=== PATIENT | female | born 1930 | race Caucasian/White ===

== ENCOUNTER 2018-04-01 09:36 | Outpatient (CLI) | payer MEDICARE, BC | END 2018-04-01 23:59 | disposition home or self-care (01) | LOC: CL 09:36 | PROVIDERS: ATTEND Nurse Practitioner Acute Care | DX: Z45.2 Encounter for adjustment and management of vascular access device (principal) | CPT/HCPCS: C1751 ==

== ENCOUNTER 2019-08-04 09:41 | Inpatient (IN) | payer MEDICARE, BC ==
[2019-08-04] VITALS (7 sets, daily range): BP systolic 110–133; BP diastolic 56–96
[~2019-08-04] VITALS: Ht 167.6 cm; Wt 49.0 kg
--- NOTE | 2019-08-04 09:50 | NUR ---
ALMA FROM HOME C/O SOB STARTED THIS MORNING. PER PARAMEDICS 80% ON RA. PATIENT A/OX2, BREATHING EVEN AND UNLABORED, NO SOB NOTED, SPO2 SHOWS 96-98% ON ROOM AIR. NEEDS ATTENDED. ATTACHED TO THE SENIOR BENEFITS MANAGER.
[2019-08-04] MEDS ORDERED: ONDA-97 PO (10:04)
[2019-08-04] MEDS ORDERED: MIRT15TA7 PO (10:04)
[2019-08-04] MEDS ORDERED: ACET-868 PO (10:04)
[2019-08-04] MEDS ORDERED: APIX2.5T PO (10:04)
[2019-08-04] MEDS ORDERED: METO25TA6 PO (10:04)
[2019-08-04 10:21] LABS: BASOPHILS # (AUTO) 0.1 /CMM (0.0-0.2); BASOPHILS % (AUTO) 0.5 % (0.0-2.0); EOSINOPHILS % (AUTO) 0.2 % (0.0-6.0); HEMATOCRIT 28 % (33-45); HEMOGLOBIN 8.9 g/dL (11.5-14.8); LYMPHOCYTES # (AUTO) 0.9 /CMM (0.8-4.8); LYMPHOCYTES % (AUTO) 8.3 % (20.0-44.0); MEAN CORPUSCULAR HGB CONC 31 g/dl (31.0-36.0); MEAN CORPUSCULAR VOLUME 76 fL (82-100); MONOCYTES # (AUTO) 0.6 /CMM (0.1-1.30); NEUTROPHILS # (AUTO) 9.8 /CMM (1.8-8.9); PLATELET COUNT (AUTO) 428 /CMM (150-450); RED BLOOD CELL COUNT(AUTO) 3.76 MIL/uL (4.0-5.2); WHITE BLOOD COUNT (AUTO) 11.4 K/uL (4.3-11.0)
--- NOTE | 2019-08-04 10:26 | NUR ---
URINE SAMPLE COLLECTED VIA STRAIGHT CATHETER, SENT SAMPLE TO LAB.
[2019-08-04 10:44] LABS: APPEARANCE,URINE Clear (CLEAR); BILIRUBIN,URINE Negative (NEGATIVE); BLOOD, URINE Small Ery/uL (NEGATIVE); COLOR,URINE Yellow (YELLOW); KETONES,URINE Negative (NEGATIVE); LEUKOCYTE ESTERASE ,URINE Negative (NEGATIVE); NITRITE, URINE Positive (NEGATIVE); PROTEIN,URINE Trace mg/dl (NEGATIVE); UGLUCOSE Negative (NEGATIVE); UROBILINOGEN,URINE 0.2 EU/dL (0.2)
[2019-08-04 10:51] LABS: ALANINE AMINOTRANSFERASE 14 U/L (12-78); ALBUMIN 2.3 g/dL (3.4-5.0); ALKALINE PHOSPHATASE 149 U/L (46-116); ASPARTATE AMINOTRANSFERASE 14 U/L (15-37); B-TYPE NATRIURETIC PEPTIDE 535 PG/ML (0-125); BILIRUBIN,TOTAL 0.4 mg/dL (0.2-1.0); CALCIUM, SERUM 8.8 mg/dL (8.5-10.1); CARBON DIOXIDE 27 mmol/L (21-32); CHLORIDE 98 mmol/L (98-107); CREATININE 0.9 mg/dL (0.6-1.3); GLUCOSE 131 mg/dL (74-106); POTASSIUM 4.9 mmol/L (3.5-5.1); SODIUM SERUM 135 mmol/L (136-145); TOTAL PROTEIN, SERUM 6.9 g/dL (6.4-8.2); UREA NITROGEN, BLOOD 11 mg/dL (7-18)
[2019-08-04 11:04] LABS: CREATINE KINASE, TOTAL 22 U/L (26-192); FERRITIN 220 ng/mL (8-388)
[2019-08-04 11:08] LABS: D-DIMER 0.85 mg/L(FEU (0.17-0.50)
[2019-08-04 11:08] LABS: BACTERIA,URINE 2+ /HPF (None Seen); SQUAMOUS EPITHELIAL CELL,UR Few /HPF (None Seen)
--- NOTE | 2019-08-04 11:10 | NUR ---
ASSUMED CARE OF PT FOR SHADY. PT IS ON THE MONITOR AND CONTINUOUS PULSE OX. PT'S O2 SAT IS 91% ON RA. PT HAS HER NC OFF. NC REPLACED AND PT IS NOW 98% ON 3L O2.
[2019-08-04 11:24] LABS: ABG BASE EXCESS -3.2 mmol/L; ABG OXYGEN SATURATION 95.9 % (92.0-98.5); ABG PCO2 28.4 mmHg (35.0-45.0); ABG PH 7.464 (7.350-7.450); AaDO2 24.7 mmHg; COHb 1.5 % (0.5-1.5); MetHb 0.3 % (0.0-1.5); O2Hb 94.2 % (94.0-97.0); SITE, ABG Right Radial; VENT MODE, BG room air
--- NOTE | 2019-08-04 11:25 | NUR ---
INFLUENZA AND COVID SWABS DONE. ALL SENT TO LAB.
--- NOTE | 2019-08-04 11:41 | NUR ---
CALLING TARAH RE: READ FOR CXR
--- NOTE | 2019-08-04 12:01 | NUR ---
PATIENT HAS A ENTERAL FEEDING CALLED REAL FOOD F BRAND PER DAUGHTER. FAMILY CAN BRING.
[2019-08-04] MEDS ORDERED: PIPERACILLIN /TAZOBACTAM 3.375 G VIAL IV ONE (12:25)
[2019-08-04] MEDS ORDERED: CT SWABBABLE VALVE TRANS SET 1 EA INFUS.SET MC ONE (12:26)
[2019-08-04] MEDS ORDERED: IV NS 0.9% 250 ML IV ONE (12:26)
[2019-08-04] MEDS ORDERED: IOHEXOL-350 100 ML VIAL IV ONE (12:27)
[2019-08-04] MEDS ORDERED: PIPERACILLIN /TAZOBACTAM 3.375 G in IV D5W 50 ML IV ONE (12:30)
[2019-08-04] MEDS ORDERED: IV NS 0.9% 1,000 ML BAG IV ONE (12:30)
--- NOTE | 2019-08-04 12:32 | NUR ---
PT IS GOING TO CT.
--- NOTE | 2019-08-04 12:40 | NUR ---
SPEAKING TO THE PT'S DAUGHTER, SARAY. UPDATE GIVEN.
--- NOTE | 2019-08-04 13:05 | NUR ---
DETECTIVE HOMICIDE SQUAD IS AT THE BEDSIDE FOR REDRAW.
--- NOTE | 2019-08-04 13:07 | NUR ---
[facility] [phone]
[2019-08-04 13:19] LABS: BILIRUBIN,DIRECT 0.1 mg/dL (0.0-0.2)
--- NOTE | 2019-08-04 13:30 | NUR ---
TEXTED JUNO CUETO DNP
--- NOTE | 2019-08-04 13:38 | NUR ---
DR CHUN IS CALLING PT'S DAUGHTER WITH AN UPDATE.
--- NOTE | 2019-08-04 13:44 | NUR ---
CALLED [facility] ITS JUNO ROM.
--- NOTE | 2019-08-04 13:54 | NUR ---
PT REC'D 2 WARM BLANKETS. WILL CONTINUE TO MONITOR THE PT.
--- NOTE | 2019-08-04 13:54 | NUR ---
DR CHUN IS SPEAKING TO Lacey CUETO DNP
[2019-08-04] MEDS ORDERED: ADENOSINE 6 MG/2 ML VIAL IVP ONE ×2 (14:30→15:00)
[2019-08-04] MEDS ORDERED: ADENOSINE 6 MG/2 ML VIAL ONE ×2 (14:31→14:40)
--- NOTE | 2019-08-04 14:32 | NUR ---
REPEAT EKG DONE. PT IS IN SVT. MD IS AT THE BEDSIDE.
[2019-08-04] MEDS ORDERED: ONDANSETRON HCL/PF 4 MG/2 ML VIAL ONE (14:55)
[2019-08-04] MEDS ORDERED: DILTIAZEM HCL IV 125 MG in IV D5W 100 ML IV ONE (15:00)
[2019-08-04] MEDS ORDERED: ONDANSETRON HCL/PF - ER 4 MG/2 ML VIAL IV ONE (15:00)
--- NOTE | 2019-08-04 15:03 | NUR ---
CALLED NURSING SUP FOR ICU BED
--- NOTE | 2019-08-04 15:06 | NUR ---
ICU 252
--- NOTE | 2019-08-04 15:08 | NUR ---
2ND IV STARTED. 20G IN RT WRIST.
[2019-08-04] MEDS: ADENOSINE 6 MG/2 ML VIAL IVP ONE ×2 (15:10→15:11)
[2019-08-04] MEDS ORDERED: DILTIAZEM HCL IV 125 MG in IV NS 0.9% 100 ML IV PRN (15:30)
[2019-08-04] MEDS ORDERED: AMIODARONE 150 MG in IV D5W 100 ML IV ONE (15:30)
[2019-08-04] MEDS ORDERED: AMIODARONE 900 MG in IV D5W 482 ML IV PRN ×2 (15:30→18:00)
[2019-08-04] MEDS ORDERED: AMIODARONE 150 MG/3 ML VIAL IV ONE ×2 (15:30)
--- NOTE | 2019-08-04 15:33 | NUR ---
AMIODARONE DRIP STARTED. PT IS ON THE MONITOR AND CONTINUOUS PULSE OX.
--- NOTE | 2019-08-04 15:46 | NUR ---
DR CHUN IS SPEAKING TO SARAY, PT'S DAUGHTER.
--- NOTE | 2019-08-04 16:00 | NUR ---
HARVESTING SUPERVISOR NOTE: PATIENT WAS RECEIVED VIA GURNEY WITH 2 ED STAFF AND PLACED TO ASSIGNED ROOM. ISOLATION PRECAUTIONS OBSERVED TO R/O COVID. WITH AMIODARONE DRIP CURRENTLY INFUSING AND TO BE CONTINUED IN THE UNITM, NO ASE NOTED AND PATIENT NOTED TO BE TOLERATING DRIP WELL. IV SITES CLEAN, DRY, PATENT AND INTACT. NO PAIN NOTED NOR REPORTED. ADMISSION ASSESSMENTS DONE. WILL CONTINUE TO MONITOR.
[2019-08-04] MEDS ORDERED: ONDANSETRON HCL/PF 4 MG/2 ML VIAL IVP PRN (18:00)
[2019-08-04] MEDS ORDERED: BUMETANIDE INJ 4 MG in IV NS 0.9% 24 ML IV ONE (18:00)
[2019-08-04] MEDS ORDERED: Z GUARD REMEDY 2 OZ OINT TP PRN (18:00)
[2019-08-04] MEDS ORDERED: ACETAMINOPHEN 325 MG TABLET PO PRN (18:00)
[2019-08-04] MEDS ORDERED: ZOLPIDEM TARTRATE 5 MG TABLET PO PRN (18:00)
[2019-08-04] MEDS: MIRTAZAPINE 15 MG TABLET PO SCH (18:53)
--- NOTE | 2019-08-04 19:00 | NUR ---
RN NOTE: SPOKE WITH PATIENT'S DAUGHTER SARAY WITH REGARDS TO PATIENT'S CONDITION. ACKNOWLEDGED AND UNDERSTOOD UPDATES. DAUGHTER EXPRESSED DESIRE TO SPEAK TO JUNO CUETO DNP REGARDING PATIENT UPDATE AND JUNO CUETO WAS INFORMED.
[2019-08-04] MEDS ORDERED: METOPROLOL TARTRATE 25 MG TABLET PO SCH ×2 (21:00)
[2019-08-05] VITALS (18 sets, daily range): BP systolic 112–148; BP diastolic 50–101
[2019-08-05 06:28] LABS: BASOPHILS % (AUTO) 0.2 % (0.0-2.0); HEMATOCRIT 31 % (33-45); HEMOGLOBIN 9.7 g/dL (11.5-14.8); LYMPHOCYTES # (AUTO) 0.6 /CMM (0.8-4.8); LYMPHOCYTES % (AUTO) 3.1 % (20.0-44.0); MEAN CORPUSCULAR HGB CONC 31 g/dl (31.0-36.0); MEAN CORPUSCULAR VOLUME 75 fL (82-100); MONOCYTES % (AUTO) 5.6 % (2.0-12.0); NEUTROPHILS # (AUTO) 16.2 /CMM (1.8-8.9); NEUTROPHILS % (AUTO) 91.1 % (43.0-81.0); PLATELET COUNT (AUTO) 529 /CMM (150-450); RED BLOOD CELL COUNT(AUTO) 4.12 MIL/uL (4.0-5.2); WHITE BLOOD COUNT (AUTO) 17.8 K/uL (4.3-11.0)
[2019-08-05 06:33] LABS: THYROID STIMULATING HORMONE 9.334 uIU/mL (0.358-3.74)
[2019-08-05 06:43] LABS: ALBUMIN 2.2 g/dL (3.4-5.0); BILIRUBIN,TOTAL 0.6 mg/dL (0.2-1.0); CALCIUM, SERUM 8.7 mg/dL (8.5-10.1); CREATININE 0.9 mg/dL (0.6-1.3); MAGNESIUM 2.1 mg/dL (1.8-2.4); PHOSPHORUS 4.8 mg/dL (2.5-4.9); POTASSIUM 4.6 mmol/L (3.5-5.1); TOTAL PROTEIN, SERUM 6.7 g/dL (6.4-8.2)
--- NOTE | 2019-08-05 07:40 | NUR ---
RN Closing note: PATIENT ON BED AND ASLEEP. CURRENTLY ON ISOLATION PRECAUTION OBSERVED TO R/O COVID. WITH AMIODARONE DRIP CURRENTLY INFUSING AT 0.5MG/MIN. TELE MONITORING SHOWING SINUS TACHYCARDIA IN THE 110S., NO ASE NOTED AND PATIENT NOTED TO BE TOLERATING DRIP WELL. IV SITES CLEAN, DRY, PATENT AND INTACT. NO PAIN NOTED NOR REPORTED. Alona Martinez (Daughter) wanted to speak to Dr. Ruiz and Ketan Baeza DNP regarding patient's condition. Call light in reach. Bed locked, low and at semi-falcon's position. Side rails up x3. Safety ensured and observed. Endorsed to oncoming shift for SHADY.
[2019-08-05] MEDS: METOPROLOL TARTRATE 25 MG TABLET PO SCH ×2 (08:58→21:22)
[2019-08-05] MEDS: AMIODARONE HCL 200 MG TABLET PO SCH ×3 (08:58→17:29)
[2019-08-05] MEDS: APIXABAN 2.5 MG TABLET PO SCH ×2 (08:59→17:34)
[2019-08-05] MEDS ORDERED: METOPROLOL TARTRATE 25 MG TABLET PO SCH (09:00)
[2019-08-05] MEDS ORDERED: FEE PK DOSING 1 MIN EA MC ONE (10:47)
--- NOTE | 2019-08-05 10:52 | NUR ---
RN NOTE 0745: Received patient awake, A/Ox3./ On 3LPM of O2 via NC, tolerated, will titrate. 2PIVs intact. On Amio drip, noted ST 100-130's on the monitor. With GT intact. 0810: NA tried to feed her but noted with vomiting, will give Zofran. Will give Real foods formula given by family to GT when nausea improves. 0845: DC Amio drip and changed to tab, tolerated am meds, crushed and gave with apple sauce. 1000: Spoke with Laila daughter via phone and given update. Made Dr. Bazea aware, family wanting to talk to him. 1050: No any significant changes, nausea improved.
[2019-08-05] MEDS ORDERED: VANCOMYCIN 1 GM in IV D5W 250 ML IV ONE (12:00)
[2019-08-05] MEDS: PIPERACILLIN /TAZOBACTAM 2.25 G in IV D5W 50 ML IV SCH ×3 (12:14→23:23)
--- NOTE | 2019-08-05 15:16 | NUR ---
N NOTE Transferred patient via bed using ACLS protocol to tele 105. Endorsed care to Caitlin CABALLERO. VSS, SR 70-80's. No c/o any discomfort. Kept clean, warm and dry. Needs attended. S/E by Dr. Baeza, he is aware daughter is waiting for his call. Spoke with daughter x3 since am and has been updating her. Daughter aware for the transfer order.
[2019-08-05] MEDS: MIRTAZAPINE 15 MG TABLET PO SCH (17:29)
[2019-08-06] VITALS: BP 119/51
[2019-08-06 04:00] VITALS: BP 120/61
[2019-08-06] MEDS: PIPERACILLIN /TAZOBACTAM 2.25 G in IV D5W 50 ML IV SCH (05:01)
[2019-08-06] MEDS ORDERED: VANCOMYCIN 0.75 GM in IV D5W 250 ML IV SCH (06:00)
--- NOTE | 2019-08-06 07:30 | NUR ---
RN AM NOTES RECEIVED PT IN BED, ASLEEP, RESPONDS TO NAME AND TOUCH, AO X 2-3, SCOTTISH SPEAKING, SR HR 81 NO SIGNS OF PAIN. LEFT AC G 20 IV ACCESS FLUSHES WELL, SITE CLEAR, HAS GT FOR MEDS AND SPECIAL DIET REAL FOOD PROVIDED BY FAMILY, FOR SWALLOW EVAL, ISOLATION FOR R/O COVID, BEDBOUND, AN DIAPERS. CAN TURN SELF IN BED. CALL LIGHT WITHIN REACH, HOB UP, SR UP X 2, WILL CONT TO MONITOR.
[2019-08-06 08:00] VITALS: BP 102/53
[2019-08-06] MEDS: METOPROLOL TARTRATE 25 MG TABLET PO SCH (09:00)
--- NOTE | 2019-08-06 09:30 | NUR ---
RN NOTES DUE MEDS GIVEN
[2019-08-06] MEDS: APIXABAN 2.5 MG TABLET PO SCH (10:05)
[2019-08-06] MEDS ORDERED: CEPH-569 PO (11:30)
[2019-08-06] MEDS ORDERED: AMIO200T4 PO (11:30)
[2019-08-06 11:52] LABS: BASOPHILS % (AUTO) 0.3 % (0.0-2.0); EOSINOPHILS % (AUTO) 0.3 % (0.0-6.0); HEMATOCRIT 27 % (33-45); HEMOGLOBIN 8.3 g/dL (11.5-14.8); LYMPHOCYTES # (AUTO) 0.9 /CMM (0.8-4.8); LYMPHOCYTES % (AUTO) 5.8 % (20.0-44.0); MEAN CORPUSCULAR HGB CONC 31 g/dl (31.0-36.0); MEAN CORPUSCULAR VOLUME 75 fL (82-100); MONOCYTES # (AUTO) 0.9 /CMM (0.1-1.30); MONOCYTES % (AUTO) 5.4 % (2.0-12.0); NEUTROPHILS # (AUTO) 14.1 /CMM (1.8-8.9); NEUTROPHILS % (AUTO) 88.2 % (43.0-81.0); PLATELET COUNT (AUTO) 472 /CMM (150-450); RED BLOOD CELL COUNT(AUTO) 3.52 MIL/uL (4.0-5.2)
[2019-08-06 11:57] LABS: ALANINE AMINOTRANSFERASE 12 U/L (12-78); ALBUMIN 1.8 g/dL (3.4-5.0); ALKALINE PHOSPHATASE 118 U/L (46-116); ASPARTATE AMINOTRANSFERASE 14 U/L (15-37); BILIRUBIN,TOTAL 0.6 mg/dL (0.2-1.0); CALCIUM, SERUM 8.3 mg/dL (8.5-10.1); CARBON DIOXIDE 29 mmol/L (21-32); CHLORIDE 97 mmol/L (98-107); CREATININE 0.9 mg/dL (0.6-1.3); GLUCOSE 107 mg/dL (74-106); MAGNESIUM 2.1 mg/dL (1.8-2.4); PHOSPHORUS 3.3 mg/dL (2.5-4.9); SODIUM SERUM 133 mmol/L (136-145); TOTAL PROTEIN, SERUM 6.2 g/dL (6.4-8.2); UREA NITROGEN, BLOOD 13 mg/dL (7-18)
[2019-08-06 12:00] VITALS: BP 112/57
--- NOTE | 2019-08-06 13:10 | NUR ---
RN NOTES PATIENT DISCHARGED TO HOME TODAY PER MD INS TABLE CONDITION. PROVIDED DC INSTRUCTIONS, MED RECON LIST AND HEALTH TEACHINGS. IV ACCESS ON LEFT AC REMOVED, PRESSURE APPLIED, NO BLEEDING, DRESSING IN PLACE. ALL BELONGINGS CHECKED AND RETURNED. PATIENT REFUSED PHOTOS AND MOVED TOO MUCH DUE TO STIFFNESS AND PAIN. ALL PAPER WORKS SIGNED. WILL FOLLOW UP WITH PCP IN 1 WEEK AND WILL MAKE OWN SCHEDULE PER DAUGHTER. ACCOMPANIED TO LOBBY VIA WHEELCHAIR, PICKED UP BY [facility] AND TRANSPORTED TO HOME VIA PRIVATE CAR.
[2019-08-06] MEDS ORDERED: SOD FERRIC GLUC 125 MG in IV NS 0.9% 100 ML IV SCH (14:00)
== END 2019-08-06 13:04 | disposition home health service (06) | DRG 871 ==
LOC: ER 09:44 → ICU 15:30 → TELE1 08-05 15:34
PROVIDERS: ADMIT Nurse Practitioner Acute Care; ATTEND Nurse Practitioner Acute Care
DX: A41.9 Sepsis, unspecified organism (principal); J96.01 Acute respiratory failure with hypoxia; D68.59 Other primary thrombophilia; E87.1 Hypo-osmolality and hyponatremia; C18.9 Malignant neoplasm of colon, unspecified; C79.9 Secondary malignant neoplasm of unspecified site; J98.11 Atelectasis; E87.2 Acidosis; N39.0 Urinary tract infection, site not specified; I47.1 Supraventricular tachycardia; E46 Unspecified protein-calorie malnutrition; I48.91 Unspecified atrial fibrillation; I10 Essential (primary) hypertension; Z79.899 Other long term (current) drug therapy; D50.9 Iron deficiency anemia, unspecified; J47.9 Bronchiectasis, uncomplicated; K76.89 Other specified diseases of liver; I25.10 Atherosclerotic heart disease of native coronary artery without angina pectoris; M81.0 Age-related osteoporosis without current pathological fracture; B96.89 Other specified bacterial agents as the cause of diseases classified elsewhere; Z93.1 Gastrostomy status; F03.90 Unspecified dementia, unspecified severity, without behavioral disturbance, psychotic disturbance, mood disturbance, and anxiety; E03.9 Hypothyroidism, unspecified; I27.21 Secondary pulmonary arterial hypertension; K76.1 Chronic passive congestion of liver
CPT/HCPCS: 36415; 36600; 71045-TC; 80048-TC; 80053-TC; 80061-TC; 81000-TC; 82248-TC; 82550-TC; 82728-TC; 82803-TC; 83540-TC; 83605-TC; 83615-TC; 83735-TC; 83880; 84100-TC; 84439-TC; 84443-TC; 84481; 84484-TC; 85025-TC; 85378-TC; 85385-TC; 85730-TC; 87040-TC; 87081-TC; 87086-TC; 87186-TC; A4216; G0378; J0153; J0282; J2405; J2543; J2916; J3370; J3490; J7030; J7050; J7060; Q9967; U0003-CS